=== PATIENT | female | born 1940 | race Caucasian/White ===

== ENCOUNTER 2024-09-24 20:34 | Observation (INO) | payer MEDICARE ==
--- NOTE | 2024-09-24 21:00 | ED ---
Chest Pain HPI - General Chief Complaint: Chest Pain Stated Complaint: Chest Pain Time Seen by Provider: 09/24/24 20:56 Source: EMS, RN notes reviewed, old records reviewed Mode of arrival: EMS Limitations: no limitations - History of Present Illness Initial Comments: This is a 84-year-old female to the ER for evaluation as patient [facility] for evaluation of chest pain today. Patient is going through significant grief and loss as they did have to bury her young grandchild today 32 years old. Patient began with chest pain tonight calling feeling members for persistent heaviness of the chest left-sided chest pain significant. No history of heart disease patient does have underlying diabetes mild dementia but is an accurate historian per family at bedside MD Complaint: chest pain, other (Grief and loss) -: days(s) Pain Location: substernal, left chest Severity: severe Severity scale (1-10): 8 Quality: tightness, heaviness Consistency: constant Improves With: nothing Worsens With: nothing Anginal Symptoms: dyspnea, sense of impending doom Other Symptoms: palpitations Treatments Prior to Arrival: none - Related Data Allergies Allergy/AdvReac Type Severity Reaction Status Date / Time acetaminophen [From [place]] Allergy Anaphylaxis Verified 09/24/24 20:44 ciprofloxacin [From Cipro] Allergy Anaphylaxis Verified 09/24/24 20:44 desvenlafaxine [From Pristiq] Allergy Anaphylaxis Verified 09/24/24 20:44 hydrocodone [From [place]] Allergy Anaphylaxis Verified 09/24/24 20:44 Iodinated Contrast Media Allergy Anaphylaxis Verified 09/24/24 20:44 iodine Allergy Anaphylaxis Verified 09/24/24 20:44 Sulfa (Sulfonamide Allergy Anaphylaxis Verified 09/24/24 20:44 Antibiotics) Review of Systems ROS Statement: Those systems with pertinent positive or pertinent negative responses have been documented in the HPI. ROS Other: All systems not noted in ROS Statement are negative. Past Medical History Past Medical History: Dementia, Diabetes Mellitus History of Any Multi-Drug Resistant Organisms: ESBL Date of last positivie culture/infection: 07/27/24 MDRO Source:: urine Past Surgical History: No Surgical Hx Reported Past Psychological History: No Psychological Hx Reported General Exam General appearance: alert, in no apparent distress, anxious Head exam: Present: atraumatic, normocephalic, normal inspection Eye exam: Present: normal appearance, PERRL, EOMI. Absent: scleral icterus, conjunctival injection, periorbital swelling ENT exam: Present: normal exam, mucous membranes moist Neck exam: Present: normal inspection. Absent: tenderness, meningismus, lymphadenopathy Respiratory exam: Present: normal lung sounds bilaterally. Absent: respiratory distress, wheezes, rales, rhonchi, stridor Cardiovascular Exam: Present: regular rate, normal rhythm, normal heart sounds. Absent: systolic murmur, diastolic murmur, rubs, gallop, clicks GI/Abdominal exam: Present: soft, normal bowel sounds. Absent: distended, tenderness, guarding, rebound, rigid Extremities exam: Present: normal inspection, full ROM, normal capillary refill. Absent: tenderness, pedal edema, joint swelling, calf tenderness Back exam: Present: normal inspection Neurological exam: Present: alert, oriented X3, CN II-XII intact Psychiatric exam: Present: normal affect, normal mood Skin exam: Present: warm, dry, intact, normal color. Absent: rash Course Vital Signs 09/24/24 09/24/24 09/24/24 20:36 22:41 23:39 Temperature 98.2 F Pulse Rate 95 90 82 Respiratory 18 16 15 Rate Blood Pressure 161/84 148/80 133/78 O2 Sat by Pulse 94 L 98 98 Oximetry - Reevaluation(s) Reevaluation #1: 09/24/24 22:04 Medical records reviewed Reevaluation #2: 09/24/24 22:04 Patient symptoms are improving Reevaluation #3: 09/24/24 22:04 Patient informed of results questions answered Reevaluation #4: Was pt. sent in by a medical professional or institution (, PA, FIRE INVESTIGATION MANAGER, urgent care, hospital, or usp...) When possible be specific @ -no Did you speak to anyone other than the patient for history (EMS, parent, family, police, friend...)? What history was obtained from this source @ -no Did you review nursing and triage notes (agree or disagree)? Why? @ -agree Are old charts reviewed (outside hosp., previous admission, EMS record, old EKG, old radiological studies, urgent care reports/EKG's, usp records)? Report findings @ -yes Differential Diagnosis (chest pain, altered mental status, abdominal pain women, abdominal pain men, vaginal bleeding, weakness, fever, dyspnea, syncope, headache, dizziness, GI bleed, back pain, seizure, CVA, palpatations, mental health, musculoskeletal)? @ -prior EKG interpreted by me (3pts min.). @ -yes X-rays interpreted by me (1pt min.). @ -yes negative for acute disease CT interpreted by me (1pt min.). @ -no U/S interpreted by me (1pt. min.). @ -no What testing was considered but not performed or refused? (CT, X-rays, U/S, labs)? Why? @ -none What meds were considered but not given or refused? Why? @ -none Did you discuss the management of the patient with other professionals (professionals i.e. , PA, FIRE INVESTIGATION MANAGER, lab, RT, psych nurse, perinatal social worker, web ui software engineer, teacher, science and operations officer, piano case and bench assembler)? Give summary @ -no Was smoking cessation discussed for >3mins.? @ -no Was critical care preformed (if so, how long)? @ -no Were there social determinants of health that impacted care today? How? (Homelessness, low income, unemployed, alcoholism, drug addiction, transp ortation, low edu. Level, literacy, decrease access to med. care, longterm, rehab)? @ -none Was there de-escalation of care discussed even if they declined (Discuss DNR or withdrawal of care, Hospice)? DNR status @ -no What co-morbidities impacted this encounter? (DM, HTN, Smoking, COPD, CAD, Cancer, CVA, ARF, Chemo, Hep., AIDS, mental health diagnosis, sleep apnea, morbid obesity)? @ -none Was patient admitted / discharged? Hospital course, mention meds given and route, prescriptions, significant lab abnormalities, going to OR and other pertinent info. @ - Undiagnosed new problem with uncertain prognosis? @ -no Drug Therapy requiring intensive monitoring for toxicity (Heparin, Nitro, Insulin, Cardizem)? @ -no Were any procedures done? @ -no Diagnosis/symptom? @ - Acute, or Chronic, or Acute on Chronic? @ -Acute Uncomplicated (without systemic symptoms) or Complicated (systemic symptoms)? @ -Complicated Side effects of treatment? @ -no Exacerbation, Progression, or Severe Exacerbation? @ -exacerbation Poses a threat to life or bodily function? How? (Chest pain, [place], DC, pneumonia, PE, COPD, DKA, ARF, appy, cholecystitis, CVA, Diverticulitis, Homicidal, Suicidal, threat to staff... and all critical care pts) @ -yes Reevaluation #5: Differential Chest Pain: Stable Angina, Unstable Angina, STEMI, NSTEMI Aortic Dissection, Pneumothorax, Musculoskeletal, Esophageal Spasm GERD, Cholecystitis, Pancreatitis, Zoster, this is not meant to be an all-inclusive list. - Consultations Consultation #1: spoke citlaly HANKS is ok to admit the patient Chest Pain MDM - MDM 84 female to the ER for evaluation. Patient presents today for evaluation regards to chest pain under severe anxiety here in the ER. Patient will be admitted for further evaluation and management Disposition Clinical Impression: Chest pain, Atypical chest pain, Anxiety, Stress reaction Disposition: ADMITTED IP TO THIS HOSP Condition: Serious Is patient prescribed a controlled substance at d/c from ED?: No Referrals: Alma Pinto DO [Primary Care Provider] - 1-2 days Time of Disposition: 23:55
[2024-09-24] MEDS: SODIUM CHLORIDE 0.9% 1,000 ML IV STA (21:09)
[2024-09-24] MEDS: MORPHINE SULFATE 2 MG/ML SYRINGE IVP STA (21:09)
[2024-09-24] MEDS: LORazepam 2 MG/ML INJ IV STA (21:11)
[2024-09-24 21:26] LABS: ALT 17 U/L (4-34); AST 18 U/L (14-36); African American GFR (CKD) 83 (>60 ml/min/1.73 sqM); Albumin 3.4 g/dL (3.5-5.0); Alkaline Phosphatase 90 U/L (38-126); Anion Gap 8 mmol/L; Blood Urea Nitrogen 23 mg/dL (7-17); Calcium 8.8 mg/dL (8.4-10.2); Carbon Dioxide 25 mmol/L (22-30); Chloride 103 mmol/L (98-107); Glucose 270 mg/dL (74-99); Lipase 66 U/L (23-300); Magnesium 1.6 mg/dL (1.6-2.3); Non-African American GFR(CKD) 72 (>60 ml/min/1.73 sqM); Potassium 4.2 mmol/L (3.5-5.1); Sodium 136 mmol/L (137-145); Total Bilirubin 0.3 mg/dL (0.2-1.3); Total Protein 6.2 g/dL (6.3-8.2)
[2024-09-24 21:34] LABS: NT-Pro-B-Type Natriuretic Pept 238 pg/mL
--- NOTE | 2024-09-24 21:37 | XR ---
EXAMINATION TYPE: XR chest 1V portable DATE OF EXAM: 09/24/2024 9:25 PM COMPARISON: None CLINICAL INDICATION: Female, 84 years old with history of cp; [facility] TECHNIQUE: XR chest 1V portable Frontal view of the chest. FINDINGS: Lungs/Pleura: Bibasilar airspace opacities There is no evidence of pleural effusion, or pneumothorax. Pulmonary vascularity: Unremarkable. Heart/mediastinum: Cardiomediastinal silhouette is unremarkable. Hiatal hernia projects over the medi astinum. Musculoskeletal: No acute osseous pathology. Left shoulder arthroplasty present. Fixation hardware pr ojecting of the spine. IMPRESSION: 1. Basilar airspace opacities correlate for pneumonia 2. Hiatal hernia. [facility], , 09/24/2024 9:35 PM
[2024-09-24 21:44] LABS: Anisocytosis Slight; Basophils # (A) 0.1 k/uL (0-0.2); Basophils % (A) 1 %; Eosinophils # (A) 0.3 k/uL (0-0.7); Eosinophils % (A) 2 %; HGB 10.4 gm/dL (11.4-16.0); Hypochromasia Slight; Lymphocytes # (A) 1.8 k/uL (1.0-4.8); Lymphocytes % (A) 13 %; MCH 28.8 pg (25.0-35.0); MCHC 30.6 g/dL (31.0-37.0); MCV 94.1 fL (80.0-100.0); Mean Platelet Volume 7.4; Monocytes # (A) 0.8 k/uL (0-1.0); Monocytes % (A) 6 %; Neutrophils # (A) 10.8 k/uL (1.3-7.7); Neutrophils % (A) 78 %; Platelet Count 279 k/uL (150-450); RBC 3.62 m/uL (3.80-5.40); RDW 16.8 % (11.5-15.5); WBC 13.9 k/uL (3.8-10.6)
[2024-09-24 21:45] LABS: INR 0.9 (<1.2); Prothrombin Time 10.2 sec (10.0-12.5)
[2024-09-24] MEDS: KETOROLAC 15 MG/ML 1 ML VIAL IVP STA (22:17)
[2024-09-24] MEDS: DEXAMETHASONE SOD PHOSPHATE 10 MG/ML 1 ML VIAL IVP STA (22:18)
[2024-09-24] MEDS: methylPREDNISolone SOD SUCCI 125 MG/2 ML VIAL IV STA (22:31)
[2024-09-24] MEDS: FAMOTIDINE 20 MG/2 ML VIAL IV STA (22:32)
[2024-09-24] MEDS: diphenhydrAMINE 50 MG/ML 1 ML VIAL IVP STA (22:32)
[2024-09-24] MEDS ORDERED: NITROGLYCERIN SL TABS 0.4 MG TAB SUBLINGUAL PRN (23:58)
[2024-09-25] MEDS: ASPIRIN 81 MG PO STA (00:50)
--- NOTE | 2024-09-25 01:13 | CT ---
EXAM: CT Angiography Chest With Intravenous Contrast CLINICAL HISTORY: ITS.REASON CT Reason: pe TECHNIQUE: Axial computed tomographic angiography images of the chest with intravenous contrast. CTDI is 15.6 mGy and DLP is 300.2 mGy-cm. This CT exam was performed using one or more of the following dose reduction techniques: automated exposure control, adjustment of the mA and/or kV according to patient size, and/or use of iterative reconstruction technique. MIP reconstructed images were created and reviewed. COMPARISON: No relevant prior studies available. FINDINGS: Pulmonary arteries: Unremarkable. No pulmonary embolism. Aorta: Atherosclerotic changes of the aorta. No thoracic aortic aneurysm. Lungs: Dependent airspace consolidation at the LEFT lung base, concerning for pneumonia. Pleural space: Unremarkable. No significant effusion. No pneumothorax. Heart: Unremarkable. No cardiomegaly. No significant pericardial effusion. No evidence of RV dysfunction. Mediastinum: Large hiatal hernia which contains a proximal stomach in a retrocardiac position. Bones/joints: Degenerative changes of the spine. LEFT shoulder reverse arthroplasty. No acute fracture. No dislocation. Soft tissues: Unremarkable. Lymph nodes: Unremarkable. No enlarged lymph nodes. IMPRESSION: 1. No pulmonary embolism. 2. Dependent airspace consolidation at the LEFT lung base, concerning for pneumonia. 3. Large hiatal hernia which contains a proximal stomach in a retrocardiac position.
[2024-09-25 06:14] VITALS: TEMP 97.5
[2024-09-25] MEDS: ASPIRIN 325 MG TAB PO SCH (08:33)
[2024-09-25] MEDS: METOPROLOL TARTRATE 25 MG TAB PO SCH (08:33)
[2024-09-25 08:45] LABS: Chol/HDL Ratio 3.05 Ratio; LDL Cholesterol,Calculated 82.6 mg/dL (0.0-131.0)
[2024-09-25] MEDS: MORPHINE SULFATE 4 MG/ML SYRINGE IV PRN (08:46)
[2024-09-25] MEDS: ASPIRIN 81 MG PO SCH (09:14)
[2024-09-25 09:45] VITALS: BP 133/73; PULSE 79; RESP 20
[2024-09-25] MEDS: AZITHROMYCIN 500 MG in SODIUM CHLORIDE 0.9% 250 ML IVPB STA (09:46)
[2024-09-25] MEDS: QUEtiapine 25 MG TAB PO STA (11:53)
[2024-09-25 12:04] LABS: Glucose,Whole Blood 464 mg/dL (70-110)
--- NOTE | 2024-09-25 12:42 | P.CRDCN ---
History of Present Illness History of present illness: HISTORY OF PRESENT ILLNESS: This is a 84-year-old female with a past medical history significant for diabetes and dementia. Patient does not follow with a senior packaging engineer. We have been asked to see the patient in consultation for chest pain. Patient examined at the bedside in the emergency room. Patient states she was having pain in the middle of her chest. She states everytime she took a deep breath, the pain would get worse. Sometimes, the pain would radiate to her back. She reports SOB for the past few weeks. She also reports her heart racing. Denies cough, fever, or chills at home. At the time of examination she denies any chest pain or pressure. Vital signs are stable. DIAGNOSTICS: - EKG reveals sinus mechanism with no signs of acute ischemia. - Chest xray basilar airspace opacities correlate for pneumonia. Hiatal hernia. - Chest CTA: Negative for pulmonary embolism. Dependent airspace consolidation at the left lung base concerning for pneumonia. Large hiatal hernia which contains proximal portion and a retrocardiac position. - Laboratory data: WBC 13.9. Hemoglobin 10.4. Platelet count 279. D-dimer 2.74. Sodium 136. Potassium 4.2. BUN 23. Creatinine 0.77. Troponin negative x 3. proBNP 238. - Current home cardiac medications include none. - No previous echocardiogram, stress test, or cardiac catheterization available in EMR for review REVIEW OF SYSTEMS: At the time of my exam: CONSTITUTIONAL: Denies fever or chills. HEENT: Denies blurred vision, vision changes, or eye pain. Denies hemoptysis CARDIOVASCULAR: Denies chest pain. Denies orthopnea. Denies PND. Denies palpitations RESPIRATORY: Denies shortness of breath. GASTROINTESTINAL: Denies abdominal pain. Denies nausea or vomiting. HEMATOLOGIC: Denies bleeding disorders. GENITOURINARY: Denies any blood in urine. SKIN: Denies pruitis. Denies rash. PHYSICAL EXAM: VITAL SIGNS: Reviewed. GENERAL: Well-developed in no acute distress. HEENT: Head is normocephalic. Pupils are equal, round. Sclerae anicteric. Mucous membranes of the mouth are moist. Neck supple. No JVD or thyromegaly LUNGS: Respirations even and unlabored. Lungs essentially clear to auscultation bilaterally. HEART: Regular rate and rhythm. S1 and S2 heard. ABDOMEN: Soft. Nondistended. Nontender. EXTREMITIES: Normal range of motion. No clubbing or cyanosis. Peripheral pulses intact. No lower extremity edema NEUROLOGIC: Awake and alert. Oriented x 3. ASSESSMENT: Chest pain Possible left lung base pneumonia, per CTA Large hiatal hernia Diabetes History of dementia PLAN: An acute coronary event has been ruled out Obtain 2D echo to assess cardiac structure and function Decrease aspirin to 81 mg daily Recommend outpatient stress testing Further recommendations pending patient course Nurse practitioner note has been reviewed by physician. Signing provider agrees with the documented findings, assessment, and plan of care documented by RETAIL MERCHANDISING MANAGER as a scribe. Past Medical History Past Medical History: Dementia, Diabetes Mellitus History of Any Multi-Drug Resistant Organisms: ESBL Date of last positivie culture/infection: 07/27/24 MDRO Source:: urine Past Surgical History: No Surgical Hx Reported Past Psychological History: No Psychological Hx Reported Medications and Allergies Home Medications Medication Instructions Recorded Confirmed Type Aspirin EC [Ecotrin Low Dose] 81 mg PO DAILY 09/25/24 09/25/24 History Donepezil HCl [Aricept] 10 mg PO HS 09/25/24 09/25/24 History Ferrous Sulfate [Feosol] 325 mg PO BID 09/25/24 09/25/24 History Insulin Glargine,Hum.rec.anlog 12 unit SQ DAILY 09/25/24 09/25/24 History [Basaglar Kwikpen U-100] Levothyroxine Sodium [Synthroid] 100 mcg PO DAILY 09/25/24 09/25/24 History Magnesium Oxide [Mag-Ox] 400 mg PO HS 09/25/24 09/25/24 History Methenamine Hippurate [Hiprex] 1 gm PO HS 09/25/24 09/25/24 History OLANZapine [ZyPREXA] 2.5 mg PO DAILY 09/25/24 09/25/24 History PARoxetine HCL [Paxil] 30 mg PO DAILY 09/25/24 09/25/24 History Pantoprazole Sodium [Protonix] 40 mg PO DAILY 09/25/24 09/25/24 History QUEtiapine [SEROquel] 25 mg PO HS 09/25/24 09/25/24 History Trospium Chloride [Sanctura XR] 60 mg PO DAILY 09/25/24 09/25/24 History amantadine HCL 50 mg PO BID 09/25/24 09/25/24 History metFORMIN HCL 1,000 mg PO DAILY 09/25/24 09/25/24 History Allergies Allergy/AdvReac Type Severity Reaction Status Date / Time acetaminophen [From [place]] Allergy Anaphylaxis Verified 09/25/24 09:06 ciprofloxacin [From Cipro] Allergy Anaphylaxis Verified 09/25/24 09:06 desvenlafaxine [From Pristiq] Allergy Anaphylaxis Verified 09/25/24 09:06 hydrocodone [From [place]] Allergy Anaphylaxis Verified 09/25/24 09:06 Iodinated Contrast Media Allergy Anaphylaxis Verified 09/25/24 09:06 iodine Allergy Anaphylaxis Verified 09/25/24 09:06 Sulfa (Sulfonamide Allergy Anaphylaxis Verified 09/25/24 09:06 Antibiotics) Physical Exam Vitals: Vital Signs Temp Pulse Resp BP Pulse Ox 09/25/24 08:39 90 18 146/83 94 L 09/25/24 06:00 97.5 F L 87 10 L 128/71 97 09/25/24 05:00 80 16 126/75 94 L 09/25/24 04:00 89 12 129/78 94 L 09/25/24 03:00 92 12 128/73 95 09/25/24 02:00 91 16 123/78 95 09/25/24 01:00 87 13 136/70 96 09/24/24 23:39 82 15 133/78 98 09/24/24 22:41 90 16 148/80 98 09/24/24 20:36 98.2 F 95 18 161/84 94 L Intake and Output 09/24/24 09/25/24 09/25/24 22:59 06:59 14:59 Other: Weight 54.431 kg Results 09/24/24 21:01 09/24/24 21:01 Cardiac Enzymes 09/24/24 09/24/24 09/25/24 Range/Units 21:01 21:01 00:20 AST 18 (14-36) U/L Troponin I <0.012 <0.012 (0.000-0.034) ng/mL 09/25/24 Range/Units 03:27 AST (14-36) U/L Troponin I <0.012 (0.000-0.034) ng/mL Coagulation 09/24/24 Range/Units 21:01 PT 10.2 (10.0-12.5) sec APTT 22.0 (22.0-30.0) sec CBC 09/24/24 Range/Units 21:01 WBC 13.9 H (3.8-10.6) k/uL RBC 3.62 L (3.80-5.40) m/uL Hgb 10.4 L (11.4-16.0) gm/dL Hct 34.0 (34.0-46.0) % Plt Count 279 (150-450) k/uL Comprehensive Metabolic Panel 09/24/24 Range/Units 21:01 Sodium 136 L (137-145) mmol/L Potassium 4.2 (3.5-5.1) mmol/L Chloride 103 (98-107) mmol/L Carbon Dioxide 25 (22-30) mmol/L BUN 23 H (7-17) mg/dL Creatinine 0.77 (0.52-1.04) mg/dL Glucose 270 H (74-99) mg/dL Calcium 8.8 (8.4-10.2) mg/dL AST 18 (14-36) U/L ALT 17 (4-34) U/L Alkaline Phosphatase 90 (38-126) U/L Total Protein 6.2 L (6.3-8.2) g/dL Albumin 3.4 L (3.5-5.0) g/dL Current Medications Generic Name Dose Route Start Last Admin Trade Name Freq PRN Reason Stop Dose Admin Aspirin 325 mg 09/25/24 09:00 09/25/24 08:33 Aspirin 325 Mg Tab PO 325 mg DAILY FRANCK Administration Ceftriaxone Sodium 2 gm/ 50 mls @ 100 mls/hr 09/25/24 08:39 Sodium Chloride IVPB 09/25/24 09:08 ONCE STA Protocol Ceftriaxone Sodium 2 gm/ 50 mls @ 100 mls/hr 09/26/24 09:00 Sodium Chloride IVPB Q24HR FRANCK Protocol Azithromycin 500 mg/ Sodium 250 mls @ 250 mls/hr 09/25/24 08:39 Chloride IVPB 09/25/24 09:38 ONCE STA Protocol Azithromycin 500 mg/ Sodium 250 mls @ 250 mls/hr 09/26/24 09:00 Chloride IVPB 09/28/24 09:59 DAILY FRANCK Protocol Metoprolol Tartrate 25 mg 09/25/24 09:00 09/25/24 08:33 Metoprolol Tartrate 25 Mg Tab PO 25 mg BID FRANCK Administration Morphine Sulfate 4 mg 09/24/24 23:58 Morphine Sulfate 4 Mg/Ml Syringe IV Q4HR PRN Chest Pain Nitroglycerin 0.4 mg 09/24/24 23:58 Nitroglycerin Sl Tabs 0.4 Mg Tab SUBLINGUAL Q5M PRN Chest Pain Intake and Output 09/24/24 09/25/24 09/25/24 22:59 06:59 14:59 Other: Weight 54.431 kg 09/24/24 21:01 09/24/24 21:01
[2024-09-26] MEDS ORDERED: AZITHROMYCIN 500 MG in SODIUM CHLORIDE 0.9% 250 ML IVPB SCH (09:00)
--- NOTE | 2024-09-26 11:31 | P.DS ---
Providers Date of admission: 09/24/24 23:58 Expected date of discharge: 09/25/24 Attending physician: Hemanth Pham Consults: 09/24/24 23:58 Consult Physician Urgent Consulting Provider: Kathe Durán Consult Reason/Comments: cp,htn Do you want consulting provider notified?: Yes Primary care physician: Alma Pinto [facility] Course: This is an 84-year-old female who was brought in by family and admitted for chest pain with cardiology evaluation. Patient was evaluated by ED physicians as well as nursing staff and cardiology. Patient family wanting to transfer patient to [facility] where I will have her care is in [place] and initially agreed upon admission although later wanted to transfer. Patient family signed patient out AGAINST MEDICAL ADVICE. Risks versus benefits including were discussed and paperwork was signed. Please refer to ER physician documentation for further HPI. Patient was not seen and evaluated by attending physician. The impression and plan of care has been dictated as a scribe by María Elena Vang, Nurse Practitioner as directed. Dr. Danny MD I have performed a history and examination and MDM of this patient, discussed the same with the dictator, and agree with the dictator's assessment and plan as written ,documented as a scribe. Based on total visit time, I have performed more than 50% of the visit. Patient Condition at Discharge: Serious Plan - Discharge Summary New Discharge Prescriptions: No Action Ferrous Sulfate [Feosol] 325 mg PO BID QUEtiapine [SEROquel] 25 mg PO HS metFORMIN HCL 1,000 mg PO DAILY Methenamine Hippurate [Hiprex] 1 gm PO HS amantadine HCL 50 mg PO BID Insulin Glargine,Hum.rec.anlog [Basaglar Kwikpen U-100] 12 unit SQ DAILY Magnesium Oxide [Mag-Ox] 400 mg PO HS Aspirin EC [Ecotrin Low Dose] 81 mg PO DAILY Pantoprazole Sodium [Protonix] 40 mg PO DAILY Levothyroxine Sodium [Synthroid] 100 mcg PO DAILY PARoxetine HCL [Paxil] 30 mg PO DAILY OLANZapine [ZyPREXA] 2.5 mg PO DAILY Donepezil HCl [Aricept] 10 mg PO HS Trospium Chloride [Sanctura XR] 60 mg PO DAILY Discharge Medication List Aspirin EC [Ecotrin Low Dose] 81 mg PO DAILY 09/25/24 [History] Donepezil HCl [Aricept] 10 mg PO HS 09/25/24 [History] Ferrous Sulfate [Feosol] 325 mg PO BID 09/25/24 [History] Insulin Glargine,Hum.rec.anlog [Basaglar Kwikpen U-100] 12 unit SQ DAILY 09/25/24 [History] Levothyroxine Sodium [Synthroid] 100 mcg PO DAILY 09/25/24 [History] Magnesium Oxide [Mag-Ox] 400 mg PO HS 09/25/24 [History] Methenamine Hippurate [Hiprex] 1 gm PO HS 09/25/24 [History] OLANZapine [ZyPREXA] 2.5 mg PO DAILY 09/25/24 [History] PARoxetine HCL [Paxil] 30 mg PO DAILY 09/25/24 [History] Pantoprazole Sodium [Protonix] 40 mg PO DAILY 09/25/24 [History] QUEtiapine [SEROquel] 25 mg PO HS 09/25/24 [History] Trospium Chloride [Sanctura XR] 60 mg PO DAILY 09/25/24 [History] amantadine HCL 50 mg PO BID 09/25/24 [History] metFORMIN HCL 1,000 mg PO DAILY 09/25/24 [History] Follow up Appointment(s)/Referral(s): Alma Pinto DO [Primary Care Provider] - 1-2 days Discharge Disposition: LEFT AGAINST MEDICAL ADVICE
--- NOTE | 2024-09-26 11:31 | P.HPIM ---
History of Present Illness H&P Date: 09/25/24 This is an 84-year-old female who was brought in by family and admitted for chest pain with cardiology evaluation. Patient was evaluated by ED physicians as well as nursing staff and cardiology. Patient family wanting to transfer patient to [facility] where I will have her care is in [place] and initially agreed upon admission although later wanted to transfer. Patient family signed patient out AGAINST MEDICAL ADVICE. Risks versus benefits including were discussed and paperwork was signed. Please refer to ER physician documentation for further HPI. Patient was not seen and evaluated by attending physician. The impression and plan of care has been dictated as a scribe by María Elena Vang, Nurse Practitioner as directed. Dr. Danny MD I have performed a history and examination and MDM of this patient, discussed the same with the dictator, and agree with the dictator's assessment and plan as written ,documented as a scribe. Based on total visit time, I have performed more than 50% of the visit. Past Medical History Past Medical History: Dementia, Diabetes Mellitus History of Any Multi-Drug Resistant Organisms: ESBL Date of last positivie culture/infection: 07/27/24 MDRO Source:: urine Past Surgical History: No Surgical Hx Reported Past Psychological History: No Psychological Hx Reported Medications and Allergies Home Medications Medication Instructions Recorded Confirmed Type Aspirin EC [Ecotrin Low Dose] 81 mg PO DAILY 09/25/24 09/25/24 History Donepezil HCl [Aricept] 10 mg PO HS 09/25/24 09/25/24 History Ferrous Sulfate [Feosol] 325 mg PO BID 09/25/24 09/25/24 History Insulin Glargine,Hum.rec.anlog 12 unit SQ DAILY 09/25/24 09/25/24 History [Basaglar Kwikpen U-100] Levothyroxine Sodium [Synthroid] 100 mcg PO DAILY 09/25/24 09/25/24 History Magnesium Oxide [Mag-Ox] 400 mg PO HS 09/25/24 09/25/24 History Methenamine Hippurate [Hiprex] 1 gm PO HS 09/25/24 09/25/24 History OLANZapine [ZyPREXA] 2.5 mg PO DAILY 09/25/24 09/25/24 History PARoxetine HCL [Paxil] 30 mg PO DAILY 09/25/24 09/25/24 History Pantoprazole Sodium [Protonix] 40 mg PO DAILY 09/25/24 09/25/24 History QUEtiapine [SEROquel] 25 mg PO HS 09/25/24 09/25/24 History Trospium Chloride [Sanctura XR] 60 mg PO DAILY 09/25/24 09/25/24 History amantadine HCL 50 mg PO BID 09/25/24 09/25/24 History metFORMIN HCL 1,000 mg PO DAILY 09/25/24 09/25/24 History Allergies Allergy/AdvReac Type Severity Reaction Status Date / Time acetaminophen [From [place]] Allergy Anaphylaxis Verified 09/25/24 09:06 ciprofloxacin [From Cipro] Allergy Anaphylaxis Verified 09/25/24 09:06 desvenlafaxine [From Pristiq] Allergy Anaphylaxis Verified 09/25/24 09:06 hydrocodone [From [place]] Allergy Anaphylaxis Verified 09/25/24 09:06 Iodinated Contrast Media Allergy Anaphylaxis Verified 09/25/24 09:06 iodine Allergy Anaphylaxis Verified 09/25/24 09:06 Sulfa (Sulfonamide Allergy Anaphylaxis Verified 09/25/24 09:06 Antibiotics) Results CBC & Chem 7: 09/24/24 21:01 09/24/24 21:01 Labs: Abnormal Lab Results - Last 24 Hours (Table) 09/25/24 Range/Units 11:58 POC Glucose (mg/dL) 464 H (70-110) mg/dL
== END 2024-09-25 13:08 | disposition left against medical advice (07) ==
LOC: EC 20:34 → 6NMEDSUR 23:58
PROVIDERS: ADMIT Hospitalist; ATTEND Hospitalist
DX: R07.89 Other chest pain (principal); F03.90 Unspecified dementia, unspecified severity, without behavioral disturbance, psychotic disturbance, mood disturbance, and anxiety; E11.9 Type 2 diabetes mellitus without complications; F41.9 Anxiety disorder, unspecified; K44.9 Diaphragmatic hernia without obstruction or gangrene; Z11.52 Encounter for screening for COVID-19; Z53.29 Procedure and treatment not carried out because of patient's decision for other reasons; Z79.82 Long term (current) use of aspirin; Z79.84 Long term (current) use of oral hypoglycemic drugs; Z79.890 Hormone replacement therapy; Z79.899 Other long term (current) drug therapy; Z88.1 Allergy status to other antibiotic agents; Z88.2 Allergy status to sulfonamides; Z88.5 Allergy status to narcotic agent; Z88.6 Allergy status to analgesic agent
CPT/HCPCS: 96376; 96361; 96365; 96375; 99285; 36415; 93005 ×2; 85379; 83880; 80061; 80053; 83605; 83690; 83735; 84484 ×2; 85025; 85610; 85730; 87040; 87636; 71045; 71275; G0378 ×2; J2060; J2270 ×2; J1200; J1100; J0456; J0696; J3490; J1885; Q9967; J2919